=== PATIENT | female | born 1995 | race Caucasian/White ===

== ENCOUNTER 2016-12-26 23:40 | Emergency (ER) | payer OTHER ==
[2016-12-27] MEDS ORDERED: ALBUTEROL NEBULIZED 2.5 MG/3 ML INHALATION STA (00:51)
--- NOTE | 2016-12-27 00:53 | ED ---
URI HPI - General Chief Complaint: Upper Respiratory Infection Stated Complaint: LITZY Time Seen by Provider: 12/26/16 23:58 Source: patient, RN notes reviewed Mode of arrival: ambulatory Limitations: no limitations - History of Present Illness Initial Comments: Patient is a 21-year-old female presents to the emergency room for evaluation of cough and chills. Patient states symptoms began about 4 days ago. Patient does state she has history of asthma. Patient also states she smokes one half pack per day. Patient states the symptoms are getting worse since then. Patient states when having on-and-off hot flashes and cold chills. Patient states she feels short of breath after coughing. Patient states her cough is dry. Patient denies headache, throat pain, ear pain, abdominal pain, nausea, vomiting. Patient denies receiving her influenza vaccine this year. - Related Data Previous Rx's Medication Instructions Recorded Albuterol Inhaler [Ventolin Hfa 1 - 2 puff INHALATION Q6HR PRN #1 12/27/16 Inhaler] inhaler predniSONE 40 mg PO DAILY #4 tab 12/27/16 Allergies Allergy/AdvReac Type Severity Reaction Status Date / Time amoxicillin Allergy Rash/Hives Verified 12/26/16 23:54 Review of Systems ROS Statement: Those systems with pertinent positive or pertinent negative responses have been documented in the HPI. ROS Other: All systems not noted in ROS Statement are negative. Past Medical History Past Medical History: No Reported History History of Any Multi-Drug Resistant Organisms: None Reported Past Surgical History: No Surgical Hx Reported Past Psychological History: No Psychological Hx Reported Smoking Status: Current every day smoker Past Alcohol Use History: Occasional Past Drug Use History: Marijuana General Exam - General Exam Comments Initial Comments: Sitting in exam room, no acute distress. Limitations: no limitations General appearance: alert, in no apparent distress Head exam: Present: atraumatic, normocephalic, normal inspection Eye exam: Present: normal appearance ENT exam: Present: normal exam, normal oropharynx, mucous membranes moist, TM's normal bilaterally, normal external ear exam Neck exam: Present: normal inspection Respiratory exam: Present: wheezes (Diffuse expiratory wheezing). Absent: respiratory distress Cardiovascular Exam: Present: normal rhythm, tachycardia, normal heart sounds Extremities exam: Present: normal inspection Back exam: Present: normal inspection Neurological exam: Present: alert, oriented X3, CN II-XII intact, normal gait Psychiatric exam: Present: normal affect, normal mood Skin exam: Present: warm, dry, intact, normal color. Absent: rash Course Vital Signs 12/26/16 12/27/16 12/27/16 23:54 01:05 01:10 Temperature 98.9 F Pulse Rate 111 H 92 101 H Respiratory 20 Rate Blood Pressure 115/66 O2 Sat by Pulse 95 Oximetry 12/27/16 01:56 Temperature 99.3 F Pulse Rate 90 Respiratory 14 Rate Blood Pressure 117/60 O2 Sat by Pulse 98 Oximetry Medical Decision Making - Medical Decision Making Patient is a 21-year-old female since emergency room for evaluation of cough and fever. Influenza B positive. Patient was wheezing on exam. Patient states she is feeling better after albuterol nebulizer treatment. Will send patient home with prednisone and inhaler as needed. Patient is past the time frame of being placed on Tamiflu. Advised patient also Tylenol and Motrin. Patient states she understands everything that was discussed with her. Return parameters discussed. Case discussed with Dr. Miller. - Lab Data Lab Results 12/27/16 Range/Units 00:00 Influenza Type A RNA Not Detected (Not Detectd) Influenza Type B (PCR) Detected H (Not Detectd) - Radiology Data Radiology results: report reviewed, image reviewed Disposition Clinical Impression: Influenza B, Bronchitis Disposition: HOME SELF-CARE Condition: Good Instructions: Influenza (ED), Acute Bronchitis (ED) Additional Instructions: Alternate Tylenol and Motrin as needed for discomfort/fever. Take medications as directed. Use inhaler as needed. Please follow up with primary care provider in 1-2 days. If any new symptom arises or symptoms worsen, return to ER as soon as possible. Prescriptions: Albuterol Inhaler [Ventolin Hfa Inhaler] 1 - 2 puff INHALATION Q6HR PRN #1 inhaler PRN Reason: Cough predniSONE 40 mg PO DAILY #4 tab Referrals: None,Stated [Primary Care Provider] - 1-2 days Time of Disposition: 01:42
--- NOTE | 2016-12-27 01:17 | XR ---
EXAM: XR Chest, 2 Views. CLINICAL HISTORY: Reason: Pain TECHNIQUE: Frontal and lateral views of the chest. COMPARISON: No relevant prior studies available. FINDINGS: Lungs: Subtle increased density overlying the lower lung mott is not clearly seen on the lateral view and appears to be due to attenuation from breast soft tissues. Allowing for this the lungs are otherwise clear. Pleural spaces: Unremarkable. No pneumothorax. Heart: Unremarkable. No cardiomegaly. Mediastinum: Unremarkable. Bones: Minimal rightward curvature that may in part be positional. No acute fracture. IMPRESSION: Subtle increased density overlying the lower lung mott is not clearly seen on the lateral view and appears to be due to attenuation from breast soft tissues. Allowing for this, no definite acute process or source of the patient's pain is seen within the chest.
[2016-12-27] MEDS ORDERED: predniSONE 20 MG TAB PO STA (01:44)
[2016-12-27 01:57] VITALS: BP 117/60; PULSE 90; RESP 14; TEMP 99.3
== END 2016-12-27 01:56 | disposition home or self-care (01) ==
LOC: EC 23:40
DX: J11.1 Influenza due to unidentified influenza virus with other respiratory manifestations (principal); F17.200 Nicotine dependence, unspecified, uncomplicated; Z87.09 Personal history of other diseases of the respiratory system; Z88.0 Allergy status to penicillin
CPT/HCPCS: 94640; 87502; 71020; 99283; J7512